=== PATIENT | male | born 1970 | race Caucasian/White ===

== ENCOUNTER 2023-10-28 10:52 | Emergency (ER) | payer OTHER, SELFPAY ==
[2023-10-28 11:05] VITALS: BP 127/75; PULSE 67; RESP 16; TEMP 36.8; O2SAT 99
--- NOTE | 2023-10-28 11:21 | ED.URI ---
HPI - URI/Sore Throat General Chief Complaint: Upper Respiratory Infection Stated Complaint: COUGH History of Present Illness [facility] Narrative: patient is a 53-year-old male patient, presents to [facility] with 9 day history of URI symptoms, initially with some clear rhinorrhea however he now has productive cough, describing copious amounts of yellow sputum throughout the day. He states the last 2 days, at night particularly, he has felt chilled and his has told him that he is burning up. He has not checked his temperature if he does not have a thermometer at home. He denies associated chest pain, he has no sore throat, no otalgia, no known sick contacts. He has not received antibiotic therapy the last 90 days. He has been taking vitamin C and zinc with an occasional dose of Tylenol cold and flu. He denies any additional associated symptoms modifying factors. Related Data Allergies Allergy/AdvReac Type Severity Reaction Status Date / Time No Known Allergies Allergy Mild Verified 10/28/23 10:55 Review of Systems Respiratory: Comments: Patient refer to [facility] Family History Family History Father Hypertension, Onset Age: 83 Cerebrovascular accident Family history of heart disease in male family member before age 55 Family history of congestive heart failure Patient's father is , Onset Age: 83 Mother Hypertension Carcinoma of colon Grandparent Diabetes mellitus Other Family history of cardiovascular disease Social History Social History Smoking packs per day: 0.25 Smoking cigarettes per day: 5.0 Years smoked: 10 Smoking pack-years: 2.50 Smoking status: Former smoker Alcohol intake: current Alcohol use details: on weekends Substance use: never Substance use type: does not use Lack of Transportation: No Lack of Food: Never True Current Housing: I Have Housing Concerned About Future Housing: No Difficulty Paying Gas/Electric Bills: No Difficulty Paying for Meds: No Currently Unemployed: No Education: Associate Degree Difficulty w/ Childcare or Family Care: No Exam Const: General: healthy appearing, no acute distress and alert Nutritional Appearance: well nourished Orientation/consciousness: patient oriented x3 Limitations: no limitations HENMT: Head: normal to inspection Ears: external ears normal, TM's normal bilaterally and EAC's normal Face/Nose/Sinus: Normal external nose present and Normal nares present Face and sinus: normal facial exam and sinuses nontender Mouth: Yes Normal oral and palatal mucosa present Teeth and gingiva: dentition normal Throat: posterior oropharynx normal and uvula midline Eyes: Conjunctivae: conjunctivae normal Pupils: Equal, round and reactive pupils present EOM: EOMs intact bilaterally Direct Ophthalmoscopy: no photophobia Neck: Neck: normal visual inspection, no lymphadenopathy and no meningeal signs Chest: Chest palpation & inspection: normal inspection of the chest Resp: Effort & Inspection: normal respiratory effort Cardio: Rate: regular rate Rhythm: regular rhythm Skin: General skin exam: normal color Rashes: no rashes Neuro: General: patient oriented x3, moves all extremities, no meningeal signs, no focal motor deficits and CN's II-XI intact bilaterally Cranial nerves: Yes Nystagmus not present Speech: normal speech Extrem: General: normal to inspection and no clubbing, cyanosis or edema Course Course Emergency Course: patient has had symptoms of URI and lower respiratory tract infection for the past 9 days. He is now describing fever over the past 48 hours and has a productive cough. Plan to treat empirically for suspected community-acquired pneumonia. He has declined testing for COVID-19, will defer chest x-ray imaging as his oxygen saturations are 99% on room air and he
== END 2023-10-28 11:34 | disposition home or self-care (01) ==
PROVIDERS: Emergency Provider Nurse Practitioner Family; PCP Internal Medicine
DX: J22 Unspecified acute lower respiratory infection (principal); Z87.891 Personal history of nicotine dependence
CPT/HCPCS: 99213; G0463

== ENCOUNTER 2024-08-29 07:48 | Outpatient (NON) | payer OTHER, SELFPAY ==
--- NOTE | 2024-08-29 | S_PTH ---
PATIENT: Juan Jose Estrada LOC: [facility] U#:[id number] AGE/SX: 54/M ROOM: RE08/29/[address]: Aramis Nevarez MD : 1970 BED: DIS: 08/29/2024 SPEC #: [id number] RECD: 08/30/24 08:39 STATUS: ALICIA REQ #: [id number] MARIBEL: 08/29/24 00:[address]: Aramis Nevarez DEPT: [facility] Surgical RECD BY: Brook Matthews ENTERED: 08/30/24 08:40 SP TYPE: Surgical OTHR DR: Addy Bae MD Tissues: A - Colon Polypectomy Procedures: Hematoxylin and Eosin Stain Gross and Microscopic Level 4
--- OUTSIDE RECORDS SUMMARY | 2024-08-30 07:53 | XMS_ITS | Clinical Summary ---
Author Organization [facility] Address [facility] [place] [address] Care Team Providers Care Quarry Plug And Feather Driller Name Role Phone Alfonso Grider Primary Care Provider [phone] Allergies No known active allergies Medications No [...] to complete this topic Insurance Care Teams Quarry Plug And Feather Driller Relationship Specialty Start Date End Date Alfonso Grider DO [address] [place] [id number] PCP - General INTERNAL MEDICINE 07/20/21
== END 2024-08-29 07:49 | disposition home or self-care (01) ==
PROVIDERS: PCP Family Medicine; Visit Provider Internal Medicine Gastroenterology
DX: D12.0 Benign neoplasm of cecum (principal); K63.5 Polyp of colon; Z80.0 Family history of malignant neoplasm of digestive organs
CPT/HCPCS: 88305

== ENCOUNTER 2024-08-29 09:46 | Day surgery (SDC) | payer OTHER, SELFPAY ==
--- OUTSIDE RECORDS SUMMARY | 2024-08-29 10:05 | XMS_ITS | Clinical Summary ---
Author Organization [facility] Address [facility] [place] [address] Care Team Providers Care Program Therapist Name Role Phone Alfonso Grider Primary Care Provider Allergies No known active allergies Medications No known medications Immunizations Immunization Administration Dates Next Due Tdap (Adacel) 07/20/2021 Social History Tobacco Use Types Packs/Day Years Used Date Smoking Tobacco: Former Smokeless Tobacco: Never Alcohol Use Standard Drinks/Week Comments Yes 0 (1 standard drink = 0.6 oz pur e alcohol) Sex and Gender Information Value Date Recorded Sex Assigned at Not on file Legal Sex Male 5:56 PM CDT Gender Identity Not on file Sexual Orientation Not on file Last Filed Vital Signs Vital Sign Reading Time Taken Comments Blood Pressure 138/88 07/20/2021 9:52 AM CDT Pulse 69 07/20/2021 9:52 AM CDT Temperature 36.4 C (97.5 F) 07/20/2021 9:52 AM CDT Respiratory Rate 16 07/20/2021 9:52 AM CDT Oxygen Saturation 97% 07/20/2021 9:52 AM CDT Inhaled Oxygen Concentration - - Weight 87.1 kg (192 lb) 07/20/2021 9:52 AM CDT Height 177.8 cm (5' 10) 07/20/2021 9:52 AM CDT Body Mass Index 27.55 07/20/2021 9:52 AM CDT Plan of Treatment Health Maintenance Due Date Last Done Comments Colorectal Cancer Screening Colonoscopy (10 Years) 1968 Annual Physical 1971 Hepatitis C 1986 Hepatitis B Vaccines (1 of 3 - 19+ 3-dose series) 1987 Pneumococcal Vaccine: 50+ Ye ars (1 of 1 - PCV) 2018 Zoster Vaccines (1 of 2) 2018 COVID-19 Vaccine (2 - 2023-2 5 season) 2023 10/19/2020 DTaP, Tdap and Td Vaccines ( 2 - Td or Tdap) 07/21/2031 07/20/2021 Meningococcal B Vaccine Aged Out No l onger eligible based on patient's age to complete this topic Meningococcal Vaccine Aged Out No jacques evangelina eligible based on patient's age to complete this topic RSV Immunizations Under 20 Months Aged Out No longer eligible based on patient's age to complete this topic Insurance Care Teams Program Therapist Relationship Specialty Start Date End Date Alfonso Grider DO [address] [place] [phone] PCP - General INTERNAL MEDICINE 07/20/21
--- OUTSIDE RECORDS SUMMARY | 2024-08-29 10:05 | XMS_ITS | Data Portability ---
Author Organization [facility] OFF[facility] Address [address] [place] [id number] Care Team Providers Care Wholesale Account Executive Name Role Phone AKHIL BELCHER Primary Care Provider Assessment No assessment recorded. Plan of Treatment Reminders Order Date Submit Date Provider Last Modified By Organization Details Last Modified Time Details Appointments None record ed. Lab None record ed. Referral None record ed. Procedures None record ed. Surgeries None record ed. Imaging None record ed. Medication Orders None record ed. Patient TargetsNo targets recorded. Patient Instructions Encounter Date Encounter Id Patient Instructions Last Modified By Organization Details Last Modified Time 03/31/2017 Exercise advised Low cholesterol diet advised Low sodium diet advised. [email or web address] Not available 03/31/2017 21:39:19 Reason for Referral None Reported. Results Created Date Observation Date Name Description Value Unit Range Abnormal Flag Note LastModifiedBy Organization Detail LastModifiedTime 03/31/19 18 03/21/2017 elect ramyaar diogr am No observ ation record ed. [email or web address] Not Available 2017 12:46:41 04/01/19 18 03/20/2017 XR, chest No observ ation record ed. [email or web address] Not Available 2017 14:13:14 05/21/19 18 05/08/2017 stres s echoc ardio gram No observ ation record ed. [email or web address] Not Available 2017 11:10:42 Result Notes None recorded. Problems Name Problem SNOMED Code Status Onset Date Resolution Date Notes Provider Name and Address Organization Details Recorded Time Snoring 72397296 Active 2017 Khushi aparicio [facility] [place] 8 10:03:26 Night sweats 25005188 Active 2017 Khushi aparicio [facility] [place] 8 10:03:35 Dyslipidemia 747637133 Active 2017 [facility] [place] 8 10:29:03 Chest pain 09033853 Active 2017 Lynda aparicio, [facility] [place] 8 10:29:23 Problem Notes None recorded. Medical Equipment None Reported. Allergies No known drug allergies Medications Name Sig Start Date Stop Date Status Note LastModified by Organization Details LastModified Time atorvastatin 20 mg tablet Take 1 tablet every day by oral route around the clock. active Not Available Not Available No t Available Aspir-81 mg tablet,delayed release Take 1 tablet every day by oral route as directed . active Not Available Not Available No t Available Vitamin C TAKE 1 TAB BY MOUTH DAILY active Not Available Not Available No t Available Vitamin D TAKE 1 TAB BY MOUTH DAILY active Not Available Not Available No t Available Flonase Allergy Relief SPRAY PRN active Not Available Not Available No t Available Vitals Date Recorded Body weight Body mass index (BMI) Body height Heart rate Oxygen saturation Oxygen saturation in Arterial blood by Pulse oximetry Systolic And Diastolic Provider Name and Address Organization Details Last Updated DateTime 8 60371.9 2 g 27.8 kg/m2 177.8 cm 67 /min 98 % 98 % 112/78 mm[Hg] Khushi Joe [facility] [place] 8 10:12:37 Social History Question Answer Notes LastModified by Organizat ion Details LastModified Time Tobacco Smoking Status Former Smoker Quit 01/16/17 Not Available [employer] 12/20/2019 03:30:41 What Is Your Level Of Caffeine Consumption? Moderate [id number] Information not available 12/20/2019 How Much Tobacco Do You Chew? None [id number] Information not available 12/20/2019 What Type Of Diet Are You Following? REGULAR [id number] Information not available 12/20/2019 Which Illicit Or Recreational Drugs Have You Used? No [id number] Information not available 12/20/2019 Marital Status Single [email or web address] Informatio n not available 03/31/2017 What Was The Date Of Your Most Recent Tobacco Screening? 03/31/2017 [id number] Information not available 12/20/2019 How Many Children Do You Have? 3 [id number] Information not available 12/20/2019 How Much Tobacco Do You Smoke? No [id number] Information not available 12/20/2019 Sex: Unknown Functional Status Question Answer Note LastModified by Organizat ion Details LastModified Time What is your level of alcohol consumption? Occasional [id number] Information not available 12/20/2019 What is your occupation? Sales [id number] Information not available 12/20/2019 What is your exercise level? Occasional [id number] Information not available 12/20/2019 Mental Status None recorded. Family History Relationship Description Onset Age of this Age Resolved Age Notes LastModified by Organization Details LastModified Time Father Heart disease [email or web address] Not available 2017 10:04:13 Father Hypertensive disorder [email or web address] Not available 2017 10:04:25 Father Muscle weakness Weak Heart Muscle [email or web address] Not available 03/31/2017 10:04:56 Father Hyperlipidem ia [email or web address] Not available 2017 10:05:03 Father Cerebrovascu lar accident [email or web address] Not available 10:05:09 Medical History No medical history recorded. Past Encounters Encounter ID Performer Location Encounter Start Date Encounter Closed Date Diagnosis/Indication Diagnosis SNOMED-CT Code Diagnosis ICD10 Code Diagnosis Note [id number] Mohsen Gipson MD [facility] [address] [place] [address] 03/31/2017 09:46:33 04/01/2017 15:13:38 Dyslipidemia 580951081 E78.5 On lipitor, Needs to keep LDL less than 70, and HDL more than 40. Chest pain 05448252 R07. 9 Will arrange for cardiac CTA, he has high [place] Risk score. he would benefit from CT to look for any Coronary Artery Disease Family his tory of ischemic heart disease 573574183 Z82.49 Needs to keep LDL less than 70, and HDL more than 40. Health Concerns Section Related Observation LastModified by Organization Detai ls LastModified Time None Recorded Concern Status LastModified by Organization Details LastModified Time None Recorded Advance Directives Directive None Recorded Payers Insurance Date Sequence Insurance Name Policy Number Policy Jones Covered Member ID Jones Member ID Guarantor Name 05/19/2017 1 [facility] ([facility] [id number] Juan Jose Estrada [id number] Juan Jose Estrada Notes Date Note Type Note Provider Name and Address Organization Details Recorded Time 03/31/2017 text/html 03/31/17 CC: Chest Pain 47 year-old man with history of dyslipidemia presents for cardiac consultation with a chief complaint of chest pain, he had chest pain last week. Patient present for hospital follow-up. Pt reports he was in the ER at [facility] with chest pain. Pt reports pain started in his back and migrated to his chest. Pt reports pain increased with inspiration. No new complaints, feeling well overall. Has been fairly active, goes to the gym 6 days a week, 30 mins of cardio and 30 mins of weight. No chest pain. No shortness of breath at rest. No dyspnea on exertion. No orthopnea. No PNDs. No dizziness. No palpitations. No syncope or near syncope. No ankle or leg edema. No nausea and vomiting. No major bleeding events. No reported side effects from medicine. Taking medications as prescribed with no missed doses.Results from this visit, or from the past: 03/20/17 SOD 140, K 4.0, CL 102, GLU 95, BUN 15, CR 0. TC 153, TR 187, LDL 63, HDL 55. EK03/20/17 Sinus rhythm. Borderline T wave abnormality-inferior leads. Borderline ECG. CHEST - TWO: 03/20/17 No acute cardiopulmonary findings. Mohsen Gipson MD [address] [place], [address], [place] [facility] 03/31/2017 21:40:08
[2024-08-29 10:20] VITALS: BMI 27.2
[2024-08-29 10:22] VITALS: BP 134/78; PULSE 64; RESP 18; TEMP 36.8; O2SAT 99
[2024-08-29] MEDS: LACTATED RINGERS 1,000 ML 150 ML IV CONT (10:25)
--- NOTE | 2024-08-29 11:16 | WPDANESEPPF ---
Anes - Initial Pre Proc Eval Procedure: Operation Date: 08/29/24 11:30 Proposed Procedures p Diagnostic Colonoscopy - Aramis Nevarez MD Date/Time: 08/29/24 11:16 Surgeon: Aramis Nevarez MD Pre Op Diagnosis: Family History of Colon Cancer Patient Data Age: 54 Gender: M Height: 1.78 m Weight: 86.2 kg Last Vital Signs Temp 98.2 F 08/29/24 10:22 Pulse 64 08/29/24 10:22 Resp 18 08/29/24 10:22 BP 134/78 08/29/24 10:22 Pulse Ox 99 08/29/24 10:22 O2 Del Method Room Air 08/29/24 10:22 Allergies Allergy/AdvReac Type Severity Reaction Status Date / Time No Known Allergies Allergy Mild Verified 08/29/24 10:08 Home Medications ?Medication ?Instructions ?Recorded ?Confirmed ?Type fluticasone propionate 50 See Rx Instructions .Route 07/29/24 08/29/24 Rx mcg/actuation nasal .COMPLEX #48 mL spray,suspension Patient hx anesthesia problems: none Family hx anesthesia problems: none Results Review: All pre-operative results and documents have been reviewed as part of the pre-operative evaluation. [facility] Family History Family History Father Hypertension, Onset Age: 83 Cerebrovascular accident Family history of heart disease in male family member before age 55 Family history of congestive heart failure Patient's father is , Onset Age: 83 Mother Hypertension Carcinoma of colon Grandparent Diabetes mellitus Other Family history of cardiovascular disease Social History Social History Smoking packs per day: 0.25 Smoking cigarettes per day: 5.0 Years smoked: 10 Smoking pack-years: 2.50 Smoking status: Never smoker Alcohol intake: current Drinks per week: 8 Alcohol use details: on weekends Substance use: never Substance use type: does not use Lack of Transportation: No Lack of Food: Never True Current Housing: I Have Housing Concerned About Future Housing: No Difficulty Paying Gas/Electric Bills: No Difficulty Paying for Meds: No Currently Unemployed: No Education: Associate Degree Difficulty w/ Childcare or Family Care: No Living arrangements: with family Anes - Eval Final PreProcedure Day of Procedure 08/29/24 11:16 Heart: regular rate and rhythm Lungs: clear to auscultation Airway: Mallampati scale class II Neurological: alert and oriented Last oral intake: >/= 8 hours ASA classification: II Anesthetic plan: proceed Anesthesia type and monitoring: monitored anesthesia care Results Review: All pre-operative results and documents have been reviewed as part of the pre-operative evaluation. Informed Consent: The patient's anesthetic plan and its attendant risks and benefits were discussed with the patient/family/POA. Questions were solicited and answers provided to the satisfaction of the patient/family/POA.
--- NOTE | 2024-08-29 12:00 | PM.IMHP ---
H&P: HPI History of Present Illness Date/Time: 08/29/24 12:00 Chief Complaint: Family history of colorectal cancer Narrative: This patient has family history of colorectal cancer. his mother and a brother had colorectal cancer, this is his 2nd colonoscopy. Review of Systems Review of Systems: All systems reviewed & are unremarkable except as noted in HPI and below PMFSH Family History Family History Father Hypertension, Onset Age: 83 Cerebrovascular accident Family history of heart disease in male family member before age 55 Family history of congestive heart failure Patient's father is , Onset Age: 83 Mother Hypertension Carcinoma of colon Grandparent Diabetes mellitus Other Family history of cardiovascular disease Social History Social History Smoking packs per day: 0.25 Smoking cigarettes per day: 5.0 Years smoked: 10 Smoking pack-years: 2.50 Smoking status: Never smoker Alcohol intake: current Drinks per week: 8 Alcohol use details: on weekends Substance use: never Substance use type: does not use Lack of Transportation: No Lack of Food: Never True Current Housing: I Have Housing Concerned About Future Housing: No Difficulty Paying Gas/Electric Bills: No Difficulty Paying for Meds: No Currently Unemployed: No Education: Associate Degree Difficulty w/ Childcare or Family Care: No Living arrangements: with family Meds Home Medications and Allergies Home Medications ?Medication ?Instructions ?Recorded ?Confirmed ?Type fluticasone propionate 50 See Rx Instructions .Route 07/29/24 08/29/24 Rx mcg/actuation nasal .COMPLEX #48 mL spray,suspension Allergies Allergy/AdvReac Type Severity Reaction Status Date / Time No Known Allergies Allergy Mild Verified 08/29/24 10:08 Vital Signs Vital Signs - 24 hr 08/29/24 10:22 Temperature 98.2 F Pulse Rate 64 Respiratory Rate 18 Blood Pressure 134/78 Pulse Oximetry 99 Oxygen Delivery Room Air Exam Const: General: cooperative and healthy appearing Resp: Effort & Inspection: normal respiratory effort and able to speak in complete sentences Auscultation: clear to auscultation bilaterally Cardio: Rate: regular rate Rhythm: regular rhythm GI: Inspection: normal to inspection GI Palp: No No hepatosplenomegaly present Auscultation: normal bowel sounds Rectal Exam: deferred Skin: General skin exam: normal color Psych: Appearance: grossly normal Mental Status: mental status grossly normal Assessment and Plan Assessment and plan (1) FHx: colon cancer: Code(s): Z80.0 - Family history of malignant neoplasm of digestive organs Status: Acute Assessment and Plan: The patient is deemed a good candidate for the procedure. Consent signed. Will proceed.
--- NOTE | 2024-08-29 12:16 | WPDANESPN ---
Anes - Prog Note Post-Op Date/Time: 08/29/24 12:16 Vital Signs: Last Vital Signs Temp 98.2 F 08/29/24 10:22 Pulse 64 08/29/24 10:22 Resp 18 08/29/24 10:22 BP 134/78 08/29/24 10:22 Pulse Ox 99 08/29/24 10:22 O2 Del Method Room Air 08/29/24 10:22 Pain Score (VAS): no Patient Feedback: Patient satisfied with anesthetic care.
[2024-08-29] MEDS: SIMETHICONE ORAL SUSPENSION 20 MG/0.3 ML 30 ML BOTTLE 0.6 ML IRRIGATION (12:20)
[2024-08-29 12:34] VITALS: BP 108/66; PULSE 54; RESP 16; O2SAT 98
[2024-08-29 12:44] VITALS: BP 131/83; PULSE 66; RESP 16; O2SAT 99
[2024-08-29 12:54] VITALS: BP 130/91; PULSE 54; RESP 15; O2SAT 100
== END 2024-08-29 13:05 | disposition home or self-care (01) ==
PROVIDERS: PCP Family Medicine; Visit Provider Internal Medicine Gastroenterology
PROC: 0DJD8ZZ Inspection of Lower Intestinal Tract, Via Natural or Artificial Opening Endoscopic (ICD-10-PCS; CPT 45378; principal; 2024-08-29 11:30)
DX: Z12.11 Encounter for screening for malignant neoplasm of colon (principal); K63.5 Polyp of colon; K57.30 Diverticulosis of large intestine without perforation or abscess without bleeding; Z80.0 Family history of malignant neoplasm of digestive organs
CPT/HCPCS: 45385